=== PATIENT | female | born 1990 | race Caucasian/White ===

== ENCOUNTER 2020-09-06 | Outpatient (REF) | payer OTHER, SELFPAY | END 2020-09-06 00:01 | disposition home or self-care (01) | LOC: HO.LNP | PROVIDERS: Visit Provider Hospitalist | DX: R30.0 Dysuria (principal); L70.9 Acne, unspecified | CPT/HCPCS: 87086 ==

== ENCOUNTER 2020-09-11 09:29 | Outpatient (REF) | payer OTHER, SELFPAY | END 2020-09-11 09:30 | disposition home or self-care (01) | LOC: HO.LAB 09:29 | PROVIDERS: Visit Provider Nurse Practitioner Family | DX: Z20.822 Contact with and (suspected) exposure to COVID-19 (principal); R05 Cough | CPT/HCPCS: U0003; U0005 ==

== ENCOUNTER 2020-09-21 09:27 | Outpatient (REF) | payer OTHER, SELFPAY ==
[2020-09-21 12:02] LABS: HCG Quantitative < 2 mIU/mL
== END 2020-09-21 09:28 | disposition home or self-care (01) ==
LOC: HO.HMGCLDS 09:27
PROVIDERS: PCP Internal Medicine; Visit Provider Nurse Practitioner Family
DX: N92.6 Irregular menstruation, unspecified (principal)
CPT/HCPCS: 36415; 84702

== ENCOUNTER 2020-10-08 12:26 | Outpatient (REF) | payer OTHER, SELFPAY ==
[2020-10-08 14:33] LABS: HCG Quantitative 52 mIU/mL
== END 2020-10-08 12:27 | disposition home or self-care (01) ==
LOC: HO.HMGCLDS 12:26
PROVIDERS: PCP Internal Medicine; Visit Provider Hospitalist
DX: N92.6 Irregular menstruation, unspecified (principal)
CPT/HCPCS: 36415; 84702

== ENCOUNTER 2020-10-11 09:47 | Emergency (ER) | payer OTHER, SELFPAY ==
[2020-10-11 11:35] VITALS: BP 118/47; PULSE 76; RESP 18; TEMP 36.6; O2SAT 100; BMI 30.1
[2020-10-11 12:35] LABS: Glucose Urine UA NEG (NEG); Leukocyte Esterase Urine NEG (NEG); Nitrite Urine NEG (NEG); Urine Blood NEG (NEG); Urine Ketones NEG (NEG); Urine Protein NEG (NEG-TRACE)
[2020-10-11 12:38] LABS: Appearance Urine HAZY; Color Urine YELLOW
[2020-10-11 13:54] LABS: Hemoglobin 13.8 g/dl (12.0-16.0); Mean Corpuscular HGB Conc 33.7 g/dl (31.0-35.0); Mean Corpuscular Hemoglobin 30.7 pg (27.0-33.0); Mean Corpuscular Volume 91.3 fL (80-98); Mean Platelet Volume 11.6 fL (9.4-12.3); Platelet Count 237 X10*3/uL (160-400); Red Blood Count 4.49 X10*6/uL (4.20-5.50); Red Cell Distribution Width 12.3 % (11.0-16.0); White Blood Count 10.5 X10*3/uL (4.8-10.8)
--- NOTE | 2020-10-11 14:00 | ED.FEMALEGU ---
HPI - Female Genitourinary General Chief complaint: Abdominal Pain Stated complaint: Time Seen by Provider: 10/11/20 13:24 Source: patient Mode of arrival: ambulatory Limitations: no limitations History of Present Illness HPI Narrative: Patient with early hCG was 52 on 10/08, LMP was 08/14 was seen had her PCP on 10/08 now comes here for complaining of low lower abdominal cramps on the left side since last night also complaining of pain in the left flank area denies any dysuria/frequency no fever no chills complaining of mild nausea no vaginal bleed Related Data Previous Rx's Medication Instructions Recorded doxycycline hyclate 100 mg tablet 100 mg PO BID #20 tab 09/06/20 fluconazole 150 mg tablet 150 mg PO Q OTHER DAY 3 Days #2 tab 09/06/20 prednisone 20 mg tablet 20 mg PO DAILY 9 Days #18 tab 09/11/20 Allergies Allergy/AdvReac Type Severity Reaction Status Date / Time human papillomavirus Allergy Intermediate RASH Verified 10/11/20 11:41 vaccine, quadr [From GARDASIL (PF)] Gardasil Allergy Unknown hives Uncoded 10/11/20 11:41 SEAFOOD Allergy Unknown HIVES Uncoded 10/11/20 11:41 Review of Systems Review of Systems: Yes all other systems are reviewed and are negative PMFSH Past Medical History Medical History Asthma Social History Social History Advance Directives: Yes Advance Directives Information Provided: Yes Advance Directives on File: No Patient : Yes Physical Exam Vital Signs: Vital Signs: Last Vital Signs Temp 97.8 F 10/11/20 11:35 Pulse 76 10/11/20 11:35 Resp 18 10/11/20 11:35 BP 118/47 L 10/11/20 11:35 Pulse Ox 100 10/11/20 11:35 Body Mass Index 30.1 Appearance: Alert. Oriented X3. No acute distress. Eyes: No pallor or icterus ENT: Pharynx normal. Oral Mucosa moist Neck: Normal inspection. Neck supple. CVS: Normal heart rate and rhythm. Pulses normal. Respiratory: No respiratory distress. Equal air entry bilateral, no wheezing/rales/rhonchi Abdomen: Soft mild left-sided deep tenderness Bowel sounds are present, no mass palpable, no CVA tenderness Skin: Skin warm and dry. Normal skin color. Normal skin turgor. Extremities: No lower extremity edema. No calf tenderness Neuro: Oriented X 3. MDM - Female Genitourinary MDM Narrative Medical decision making narrative: Patient with stable labs increasing hCG to 266 in a no significant tenderness on palpation likely bowel , cramping pain which patient feels too. Patient advised to come to the ER if increasing pain Lab Data Attestation: I reviewed the patient's lab results. Result diagrams: 10/11/20 13:40 10/11/20 13:40 Labs: Lab Results 10/11/20 10/11/20 10/11/20 Range/Units 12:25 12:25 13:40 WBC 10.5 (4.8-10.8) X10*3/uL RBC 4.49 (4.20-5.50) X10*6/uL Hgb 13.8 (12.0-16.0) g/dl Hct 41.0 (37-47) % MCV 91.3 (80-98) fL MCH 30.7 (27.0-33.0) pg MCHC 33.7 (31.0-35.0) g/dl RDW 12.3 (11.0-16.0) % Plt Count 237 (160-400) X10*3/uL MPV 11.6 (9.4-12.3) fL Absolute Nucleated RBC 0.000 (0.0-0.012) X10*3/uL Nucleated RBC % (auto) 0.0 (0.0-0.2) /100WBC Sodium (135-145) mmol/L Potassium (3.3-5.1) mmol/L Chloride (96-108) mmol/L Carbon Dioxide (22-29) mmol/L Anion Gap (12-20) BUN (9-16) mg/dL Creatinine (0.5-1.4) mg/dL Estim Creat Clear Calc Estimated GFR Random Glucose (60-115) mg/dL Calcium (8.4-10.2) mg/dL Beta HCG, Quant mIU/mL Urine Color YELLOW Urine Appearance HAZY Urine pH 7.0 (5.0-8.0) Ur Specific [place] 1.010 (1.005-1.025) Urine Protein NEG (NEG-TRACE) MG/DL Urine Glucose (UA) NEG (NEG) MG/DL Urine Ketones NEG (NEG) MG/DL Urine Blood NEG (NEG) Urine Nitrite NEG (NEG) Ur Leukocyte Esterase NEG (NEG) Chlam trachomat DNA PCR Cancelled N.gonorrhoeae DNA (PCR) Cancelled 10/11/20 Range/Units 13:40 WBC (4.8-10.8) X10*3/uL RBC (4.20-5.50) X10*6/uL Hgb (12.0-16.0) g/dl Hct (37-47) % MCV (80-98) fL MCH (27.0-33.0) pg MCHC (31.0-35.0) g/dl RDW (11.0-16.0) % Plt Count (160-400) X10*3/uL MPV (9.4-12.3) fL Absolute Nucleated RBC (0.0-0.012) X10*3/uL Nucleated RBC % (auto) (0.0-0.2) /100WBC Sodium 137 (135-145) mmol/L Potassium 4.2 (3.3-5.1) mmol/L Chloride 104 (96-108) mmol/L Carbon Dioxide 25 (22-29) mmol/L Anion Gap 12 (12-20) BUN 10 (9-16) mg/dL Creatinine 0.66 (0.5-1.4) mg/dL Estim Creat Clear Calc 122.5 Estimated GFR > 60 Random Glucose 76 (60-115) mg/dL Calcium 9.4 (8.4-10.2) mg/dL Beta HCG, Quant 266 mIU/mL Urine Color Urine Appearance Urine pH (5.0-8.0) Ur Specific [place] (1.005-1.025) Urine Protein (NEG-TRACE) MG/DL Urine Glucose (UA) (NEG) MG/DL Urine Ketones (NEG) MG/DL Urine Blood (NEG) Urine Nitrite (NEG) Ur Leukocyte Esterase (NEG) Chlam trachomat DNA PCR N.gonorrhoeae DNA (PCR) Discharge Plan Discharge Clinical Impression: Early stage of Patient Disposition: Home, Self-Care Instructions: Abdominal Pain in (ED) Additional Instructions: Report to the ER if increased pain/vomiting/vaginal bleed Prescriptions: No Action doxycycline hyclate 100 mg tablet 100 mg PO BID Qty: 20 RF: 0 fluconazole 150 mg tablet 150 mg PO Q OTHER DAY 3 Days Qty: 2 RF: 0 prednisone 20 mg tablet 20 mg PO DAILY 9 Days Qty: 18 RF: 0
[2020-10-11 14:20] LABS: Anion Gap 12 (12-20); Blood Urea Nitrogen 10 mg/dL (9-16); Calcium 9.4 mg/dL (8.4-10.2); Carbon Dioxide 25 mmol/L (22-29); Chloride 104 mmol/L (96-108); Creatinine Clr Calc Pharmacy 122.5; Estimated Glomerular Filt Rate > 60; Glucose Random 76 mg/dL (60-115); Potassium 4.2 mmol/L (3.3-5.1); Sodium 137 mmol/L (135-145)
[2020-10-11 14:30] LABS: HCG Quantitative 266 mIU/mL
[2020-10-11 14:59] VITALS: BP 109/56; PULSE 70; RESP 16; O2SAT 98
== END 2020-10-11 15:05 | disposition home or self-care (01) ==
PROVIDERS: Emergency Provider Internal Medicine; PCP Internal Medicine
DX: O26.891 Other specified pregnancy related conditions, first trimester (principal); R10.30 Lower abdominal pain, unspecified; Z3A.01 Less than 8 weeks gestation of pregnancy
CPT/HCPCS: 36415; 80048; 81003; 84702; 85027; 87491; 87591; 99283; 99284

== ENCOUNTER 2021-01-25 14:25 | Outpatient (REF) | payer OTHER, SELFPAY ==
[2021-01-25 14:51] LABS: MANUAL DIFF FLAG NO
[2021-01-25 15:12] LABS: Basophils Percent Auto 0.1 % (0-2); Eosinophils Absolute Auto 0.5 X10*3/uL (0.0-0.4); Eosinophils Percent Auto 3.6 % (0-4); Hematocrit 35.3 % (37.0-47.0); Hemoglobin 11.7 g/dl (12.0-16.0); Imm Gran Pct Auto 0.7 % (0.0-0.4); Lymphocytes Absolute Auto 2.2 X10*3/uL (1.2-4.9); Lymphocytes Percent Auto 15.4 % (20-40); Mean Corpuscular HGB Conc 33.1 g/dl (31.0-35.0); Mean Corpuscular Hemoglobin 30.6 pg (27.0-33.0); Mean Corpuscular Volume 92.4 fL (80.0-98.0); Mean Platelet Volume 11.8 fL (9.4-12.3); Monocytes Percent Auto 6.8 % (2-11); Neutrophils Absolute Auto 10.3 x10*3/uL (2.0-8.3); Neutrophils Percent Auto 73.4 % (45-73); Platelet Count 237 X10*3/uL (160-400); Red Blood Count 3.82 X10*6/uL (4.20-5.50); Red Cell Distribution Width 12.8 % (11.0-16.0); White Blood Count 14.1 X10*3/uL (4.8-10.8)
[2021-01-25 15:37] LABS: Anion Gap 12 (12-20); Blood Urea Nitrogen 7 mg/dL (9-16); Calcium 9.7 mg/dL (8.4-10.2); Carbon Dioxide 24 mmol/L (22-29); Chloride 106 mmol/L (96-108); Estimated Glomerular Filt Rate > 60; Glucose Fasting 73 mg/dL (60-99); Potassium 4.5 mmol/L (3.3-5.1); Sodium 137 mmol/L (135-145)
== END 2021-01-25 14:26 | disposition home or self-care (01) ==
LOC: HO.XRAY 14:25
PROVIDERS: PCP Internal Medicine; Visit Provider Nurse Practitioner Acute Care
DX: R10.9 Unspecified abdominal pain (principal); R07.1 Chest pain on breathing; R31.9 Hematuria, unspecified
CPT/HCPCS: 36415; 80048; 85025

== ENCOUNTER 2021-09-25 15:14 | Outpatient (REF) | payer OTHER, SELFPAY ==
[2021-09-25 16:07] LABS: Hematocrit 39.7 % (37.0-47.0); Hemoglobin 13.5 g/dl (12.0-16.0); Mean Corpuscular Hemoglobin 30.3 pg (27.0-33.0); Mean Platelet Volume 12.1 fL (9.4-12.3); Platelet Count 272 X10*3/uL (160-400); Red Blood Count 4.46 X10*6/uL (4.20-5.50); Red Cell Distribution Width 12.6 % (11.0-16.0); White Blood Count 8.3 X10*3/uL (4.8-10.8)
[2021-09-25 16:42] LABS: Alanine Aminotransferase 14 U/L (0-31); Albumin Level 4.4 g/dL (3.5-5.0); Alkaline Phosphatase 74 U/L (39-117); Anion Gap 15 (12-20); Aspartate Amino Transferase 15 U/L (5-31); Bilirubin Total 0.5 mg/dL (0.0-1.0); Blood Urea Nitrogen 8 mg/dL (9-16); Calcium 9.3 mg/dL (8.4-10.2); Carbon Dioxide 24 mmol/L (22-29); Chloride 106 mmol/L (96-108); Estimated Glomerular Filt Rate > 60; Glucose Fasting 86 mg/dL (60-99); Potassium 4.3 mmol/L (3.3-5.1); Sodium 141 mmol/L (135-145); Total Protein 7.6 g/dL (6.5-8.0)
[2021-09-25 17:03] LABS: TSH reflex Free T4 0.62 uIU/mL (0.32-4.0); Vitamin D 25-OH Total 54.4 ng/mL (>30)
[2021-09-25 17:16] LABS: Folate 15.5 ng/mL (> or = 4.0); Vitamin B12 291 pg/mL (200-900)
[2021-09-26 21:17] LABS: Rubella IgG Antibody 1.64 Index
[2021-09-26 21:21] LABS: Mumps Virus IgG Antibody <9.00 AU/mL; Rubeola IgG (Measles) >300.00 AU/mL
== END 2021-09-25 15:15 | disposition home or self-care (01) ==
LOC: HO.LAB 15:14
PROVIDERS: PCP Internal Medicine; Visit Provider Nurse Practitioner Family
DX: Z00.00 Encounter for general adult medical examination without abnormal findings (principal)
CPT/HCPCS: 36415; 80053; 82306; 82607; 82746; 84443; 85027; 86735; 86762; 86765

== ENCOUNTER 2022-09-03 12:39 | Outpatient (AMB) | payer OTHER, SELFPAY ==
--- NOTE | 2022-09-03 12:48 | MHC.OFFWIV ---
Intake Vital Signs 09/03/22 12:49 Height 5 ft 3 in BP 118/70 Blood Pressure Location Rt brachial Position Sitting Pulse 70 Pulse Source Palpation Temp 97.1 F Temp Source Temporal Artery Scan Intake Visit Reasons: EP asthma Intake Note: pt is here for asthma Patient Tobacco Use Status: Never used Tobacco Allergies human papillomavirus vaccine, quadr [From GARDASIL (PF)] Allergy (Intermediate, Verified 09/03/22 13:01) RASH Gardasil Allergy (Unknown, Uncoded 05/07/22 13:26) hives SEAFOOD Allergy (Unknown, Uncoded 05/07/22 13:26) HIVES Medication List - Last Reconciled 09/03/22 by Jackelin Ennis, CRISTO-SWAPNA albuterol sulfate 90 mcg/actuation 1 inh inhalation QID etonogestrel-ethinyl estradiol 0.12-0.015 mg/24 hr vag rings vaginal DIRECTED Do you need a note to return to daycare/school/sports/work: No HPI HPI Comments History of Present Illness Details here today with complaints of asthma exacerbation. Started with cold symptoms a few weeks ago. Most symptoms have resolved with the exception of sinus congestion and cough which is triggering her asthma. Reports her symptoms include wheezing and shortness of breath. She does not take a daily maintenance inhaler she does have albuterol prescribed p.r.n. unfortunately she does not have any to use. She denies fever and chills chest pain. admits some pressure in the right ear. [facility] [place] Medical History Ankle fracture Asthma Fibroadenoma of right breast Hematuria Liver laceration Renal calculus, right Spleen laceration Surgical History History of appendectomy Social History Housing: House Alcohol intake: never Patient Tobacco Use Status: Never used Tobacco e-Cigarette/Vaping Use: Currently Using Second Hand Smoke Exposure: No service: No Current occupational status: employed Current occupation: C[employer] Cognitive needs: No Hearing needs: No Vision needs: No Review of Systems Const All systems reviewed & are unremarkable except as noted in HPI and below Physical Exam Vital Signs: Last Vital Signs Temp 97.1 F 09/03/22 12:49 Pulse 70 09/03/22 12:49 BP 118/70 09/03/22 12:49 Const Other: with alert oriented no acute distress sclera and conjunctiva clear bilat TM intact and clear on the left mild effusion on the right nares patent turbinates mildly erythematous and edematous no sinus tenderness with palpation pharynx within normal limits rrr lung sounds diminished throughout without wheeze or cough, no accessory muscles used skin pink warm dry Assessment & Plan Assessment & Plan (1) Asthma exacerbation: Code(s): J45.901 - Unspecified asthma with (acute) exacerbation Medications: New albuterol sulfate 90 mcg/actuation 2 puffs inhalation Q4-6H 30 days PRN 8.5 grams 0RF shortness of breath or wheezing azithromycin For 250 mg dose pack: take 500 mg today (day 1), then 250 mg for 4 days (days 2-5) orally; 5 days 6 tabs 0RF prednisone 50 mg PO DAILY 5 days 5 tabs 0RF Coding Level of Care Code Est Pt Level 3 (15153) Diagnoses Asthma exacerbation J45.901
[2022-09-03 12:49] VITALS: BP 118/70; PULSE 70; TEMP 36.2
== END 2022-09-03 13:21 | disposition home or self-care (01) ==
PROVIDERS: PCP Internal Medicine; Visit Provider Nurse Practitioner Family
DX: J45.901 Unspecified asthma with (acute) exacerbation (principal)
CPT/HCPCS: 99213

== ENCOUNTER 2023-12-28 11:55 | Outpatient (REF) | payer OTHER, SELFPAY ==
[2023-12-28 13:35] LABS: MANUAL DIFF FLAG NO
[2023-12-28 13:52] LABS: Basophils Percent Auto 0.4 % (0-2); Eosinophils Absolute Auto 0.3 X10*3/uL (0.0-0.4); Eosinophils Percent Auto 2.8 % (0-4); Hematocrit 39.8 % (37.0-47.0); Hemoglobin 13.3 g/dl (12.0-16.0); Imm Gran Abs Auto 0.02 X10*3/uL (0.00-0.03); Imm Gran Pct Auto 0.2 % (0.0-0.4); Lymphocytes Absolute Auto 1.7 X10*3/uL (1.2-4.9); Lymphocytes Percent Auto 17.7 % (20-40); Mean Corpuscular HGB Conc 33.4 g/dl (31.0-35.0); Mean Corpuscular Hemoglobin 30.4 pg (27.0-33.0); Mean Corpuscular Volume 90.9 fL (80.0-98.0); Mean Platelet Volume 12.1 fL (9.4-12.3); Monocytes Absolute Auto 0.5 X10*3/uL (0.1-1.2); Monocytes Percent Auto 5.3 % (2-11); Neutrophils Absolute Auto 7.2 x10*3/uL (2.0-8.3); Neutrophils Percent Auto 73.6 % (45-73); Platelet Count 279 X10*3/uL (160-400); Red Blood Count 4.38 X10*6/uL (4.20-5.50); Red Cell Distribution Width 12.6 % (11.0-16.0); White Blood Count 9.7 X10*3/uL (4.8-10.8)
[2023-12-28 14:27] LABS: Anion Gap 13 (12-20); Blood Urea Nitrogen 7 mg/dL (9-16); Carbon Dioxide 25 mmol/L (22-29); Chloride 108 mmol/L (96-108); Estimated Glomerular Filt Rate > 60; Glucose Random 151 mg/dL (60-115); Potassium 4.2 mmol/L (3.3-5.1); Sodium 142 mmol/L (135-145)
[2023-12-28 14:45] LABS: TSH reflex Free T4 1.25 uIU/mL (0.32-4.0)
== END 2023-12-28 11:56 | disposition home or self-care (01) ==
LOC: HO.HMGCLDS 11:55
PROVIDERS: PCP Internal Medicine; Visit Provider Registered Nurse
DX: R00.2 Palpitations (principal); F41.9 Anxiety disorder, unspecified; R07.89 Other chest pain
CPT/HCPCS: 36415; 80048; 84443; 85025; 99212

== ENCOUNTER 2023-12-28 11:55 | Outpatient (AMB) | payer OTHER, SELFPAY ==
[2023-12-28 12:00] VITALS: BP 122/78; PULSE 72; O2SAT 98
--- NOTE | 2023-12-28 12:00 | MHC.OFFWIV ---
Intake Vital Signs 12/28/23 12:00 Height 5 ft 3 in BP 122/78 Blood Pressure Location Rt brachial Position Sitting Pulse 72 Pulse Source Pulse Oximeter Pulse Oximetry (%) 98 Oxygen Delivery Method Room Air Intake Visit Reasons: anxiety, chest pressure Intake Note: pt is here for anxiety, and chest pressure Patient Tobacco Use Status: Never used Tobacco Allergies human papillomavirus vaccine, quadr [From GARDASIL (PF)] Allergy (Intermediate, Verified 12/28/23 12:00) RASH Gardasil Allergy (Unknown, Uncoded 05/07/22 13:26) hives SEAFOOD Allergy (Unknown, Uncoded 05/07/22 13:26) HIVES Do you need a note to return to daycare/school/sports/work: No HPI anxiety, chest pressure HPI Details This note is constructed using voice recognition software. While every effort has been made to ensure accuracy, global regulatory affairs manager errors may have been included. The patient is a 33 year old female who presents to the clinic today with palpitations, anxiety. She reports that she is going through some increased home stressors over the last 2-3 weeks, at which time she developed palpitations. She also notes that she has lost 10 lb unintentionally during that time. She denies any heat or cold intolerance, dry skin or nails, chest pain. She does report that the palpitations appear suddenly, and have even woken her up from her sleep. She has never had any trouble with her mental health in the past. She denies SI/HI. [facility] Medical History Ankle fracture Asthma Fibroadenoma of right breast Hematuria Liver laceration Renal calculus, right Spleen laceration Surgical History History of appendectomy Social History Housing: House Alcohol intake: never Patient Tobacco Use Status: Never used Tobacco e-Cigarette/Vaping Use: Currently Using Second Hand Smoke Exposure: No service: No Current occupational status: employed Current occupation: CER Cognitive needs: No Hearing needs: No Vision needs: No Review of Systems Const All systems reviewed & are unremarkable except as noted in HPI and below Physical Exam Vital Signs: Last Vital Signs Pulse 72 12/28/23 12:00 BP 122/78 12/28/23 12:00 Pulse Ox 98 12/28/23 12:00 Oxygen Delivery Method Room Air 12/28/23 12:00 Const General: cooperative, healthy appearing, comfortable, no acute distress and well developed Orientation/consciousness: patient oriented x3 Limitations: no limitations Neck Neck: Yes normal visual inspection Resp Effort & Inspection: normal respiratory effort and able to speak in complete sentences Auscultation: clear to auscultation bilaterally Cardio Rate: regular rate Rhythm: regular rhythm Heart sounds: normal S1 and S2 Skin General skin exam: no rashes or lesions noted Neuro General: patient oriented x3 Extrem General: Yes normal to inspection Results Reviewed Results Reviewed: In office EKG. Normal sinus rhythm. Assessment & Plan Assessment & Plan (1) Palpitations: Code(s): R00.2 - Palpitations Plan: In office EKG appears normal. We will obtain labs to rule out physical etiology including anemia, electrolyte abnormality, or thyroid abnormality. Advised patient to follow up with primary care provider for ongoing symptoms. We will try a p.r.n. hydroxyzine for symptomatic management of anxiety. Reviewed symptoms that would require urgent and emergent re-evaluation. Plan See above for full details and plan. Orders: Orders Basic Metabolic Panel Today R00.2 - Palpitations AMB EKG-In Office Today R00.2 - Palpitations TSH reflex Free T4 Today R00.2 - Palpitations Complete Blood Count Auto Diff Today R00.2 - Palpitations Medications: New hydroxyzine HCl 10 mg PO TID 5 days PRN 15 tabs 0RF anxiety Coding Level of Care Code Est Pt Level 4 (37528) Diagnoses Palpitations R00.2
== END 2023-12-28 12:37 | disposition home or self-care (01) ==
PROVIDERS: PCP Internal Medicine; Visit Provider Registered Nurse
DX: R00.2 Palpitations (principal)